=== PATIENT | male | born 1980 | race Caucasian/White ===

== ENCOUNTER 2016-07-13 11:22 | Inpatient (IN) | payer OTHER ==
[2016-07-13 13:55] VITALS: BMI 23.7
--- NOTE | 2016-07-13 15:19 | HP ---
COWS - Scale Resting Pulse: 1= MS 81-100 Sweatin=Flushed/Facial Moisture Restless Observation: 1= Difficult to Sit Still Pupil Size: 0= Normal to Room Light Bone or Joint Aches: 2= Severe Diffuse Aches Runny Nose/ Eye Tearin= Runny Nose/Eyes GI Upset > 30mins: 1= Stomach Cramp Tremor Observation: 2= Slight Tremor Visible Yawning Observation: 2= >3x During Session Anxiety or Irritability: 2=Irritable/Anxious Goose Flesh Skin: 3=Piloerection COWS Score: 18 CIWA Score - CIWA Score Nausea/Vomitin-Mild Nausea/No Vomiting Muscle Tremors: 4-Moderate,w/Arms Extend Anxiety: 4-Mod. Anxious/Guarded Agitation: 4-Moderately Restless Paroxysmal Sweats: 3 Orientation: 0-Oriented Tacttile Disturbances: 0-None Auditory Disturbances: 0-None Visual Disturbances: 0-None Headache: 1-Very Mild CIWA-Ar Total Score: 17 Admission ROS [facility] - HPI Chief Complaint: I want to get clean. Allergies/Adverse Reactions: Allergies Allergy/AdvReac Type Severity Reaction Status Date / Time No Known Allergies Allergy Verified 07/13/16 14:55 History of Present Illness: pt is a 35yr old male with a history of alcohol and heroin dependence seeking detox for treatment. Exam Limitations: No Limitations - Ebola screening Have you traveled outside of the country in the last 21 days: No Have you had contact with anyone from an Ebola affected area: No Have you been sick,other than usual withdrawal symptoms: No Do you have a fever: No - Review of Systems Constitutional: Chills, Diaphoresis, Loss of Appetite, Night Sweats, Unintentional Wgt. Loss EENT: reports: Tearing Respiratory: reports: No Symptoms reported Cardiac: reports: No Symptoms Reported GI: reports: Diarrhea, Nausea, Poor Appetite, Poor Fluid Intake : reports: No Symptoms Reported Musculoskeletal: reports: Back Pain, Joint Pain, Muscle Pain Integumentary: reports: Erythema (to right hand only with rash and redness), Flushing, Sweating Neuro: reports: Headache Endocrine: reports: Excessive Sweating, Flushing, Intolerance to Cold, Intolerance to Heat Hematology: reports: No Symptoms Reported Psychiatric: reports: Judgement Intact, Mood/Affect Appropiate, Orientated x3, Agitated, Anxious Other Systems: Reviewed and Negative Patient History - Patient Medical History Hx Anemia: No Hx Asthma: Yes Hx Chronic Obstructive Pulmonary Disease (COPD): No Hx Cancer: No Hx Cardiac Disorders: No Hx Congestive Heart Failure: No Hx Hypertension: No Hx Hypercholesterolemia: No Hx Pacemaker: No HX Cerebrovascular Accident: No Hx Seizures: No Hx Dementia: No Hx Diabetes: No Hx Gastrointestinal Disorders: No Hx Liver Disease: No Hx Genitourinary Disorders: No Hx Sexually Transmitted Disorders: No Hx Renal Disease (ESRD): No Hx Thyroid Disease: No Hx Human Immunodeficiency Virus (HIV): No (negative) Hx Hepatitis C: No (negative) Hx Depression: No Hx Suicide Attempt: No (denies) Hx Bipolar Disorder: No Hx Schizophrenia: No - Patient Surgical History Past Surgical History: No Hx Neurologic Surgery: No Hx Cataract Extraction: No Hx Cardiac Surgery: No Hx Lung Surgery: No Hx Breast Surgery: No Hx Breast Biopsy: No Hx Abdominal Surgery: No Hx Appendectomy: No Hx Cholecystectomy: No Hx Genitourinary Surgery: No Hx Section: No Hx Orthopedic Surgery: No Anesthesia Reaction: No - PPD History Previous Implant?: Yes Documented Results: Negative w/o proof Implanted On Prior [facility] Admission?: No PPD to be Administered?: Yes - Reproductive History Patient is a Female of Child Bearing Age (11 -55 yrs old): No - Smoking Cessation Smoking history: Current every day smoker Have you smoked in the past 12 months: Yes Aproximately how many cigarettes per day: 5 Hx Chewing Tobacco Use: No Initiated information on smoking cessation: Yes 'Breaking Loose' booklet given: 07/13/16 - Substance & Tx. History Hx Alcohol Use: Yes Hx Substance Use: Yes Substance Use Type: Alcohol, Cocaine, Heroin Hx Substance Use Treatment: Yes - Substances Abused Heroin Route: Injection Frequency: Daily Amount used: 7-8 bags Age of first use: 18 Date of Last Use: 07/12/16 Cocaine Route: Injection Frequency: 3-6 times per week Amount used: $10-20 Age of first use: 33 Date of Last Use: 07/12/16 Alcohol-beer/rum Route: Oral Frequency: Daily Amount used: 1-6 pk./1/2 pt. Age of first use: 33 Date of Last Use: 07/12/16 Family Disease History - Family Disease History Family History: Denies Admission Physical Exam BHS - Vital Signs Vital Signs: Vital Signs - 24 hr 07/13/16 13:53 Temperature 96 F L Pulse Rate 86 Respiratory 20 Rate Blood Pressure 100/62 - Physical General Appearance: Yes: Moderate Distress HEENTM: Yes: Hearing grossly Normal, Nasal Congestion, Rhinorrhea Respiratory: Yes: Lungs Clear, Normal Breath Sounds, No Respiratory Distress Neck: Yes: No masses,lesions,Nodules Breast: Yes: Within Normal Limits Cardiology: Yes: Regular Rhythm, Regular Rate, S1, S2 Abdominal: Yes: Normal Bowel Sounds, Non Tender, Soft Genitourinary: Yes: Within Normal Limits Back: Yes: Normal Inspection Musculoskeletal: Yes: full range of Motion, Back pain Extremities: Yes: Normal Capillary Refill, Normal Inspection, Non-Tender, Tremors Neurological: Yes: Fully Oriented, Alert, Normal Response Integumentary: Yes: Normal Color, Diaphoresis, Rash (to right hand), Track Deng Lymphatic: Yes: Within Normal Limits - Diagnostic (1) Alcohol dependence with uncomplicated withdrawal Current Visit: Yes Status: Chronic (2) Asthma Current Visit: Yes Status: Chronic Qualifiers: Asthma severity: mild intermittent Asthma complication type: uncomplicated Qualified Code(s): J45.20 - Mild intermittent asthma, uncomplicated (3) Cocaine dependence, uncomplicated Current Visit: Yes Status: Chronic (4) Opioid dependence with withdrawal Current Visit: Yes Status: Chronic (5) Rash of hands Current Visit: Yes Status: Acute Comment: palm of right hand Cleared for Admission [facility] - Detox or Rehab [facility] Level of Care: Medically Managed Detox Regimen/Protocol: Methadone/Librium [facility] Breath Alcohol Content Breath Alcohol Content: 0 Urine Drug Screen - Results Drug Screen Negative: No Urine Drug Screen Results: ADITI-Cocaine, OPI-Opiates, MTD-Methadone
[2016-07-13] MEDS ORDERED: MAGNESIUM HYDROX 2400MG/30ML ORAL SUSPENSION 30 ML CUP PO PRN (15:28)
[2016-07-13] MEDS ORDERED: IBUPROFEN 400 MG TABLET (FP) PO PRN (15:28)
[2016-07-13] MEDS ORDERED: diphenhydrAMINE HCL 50 MG CAPSULE PO PRN (15:28)
[2016-07-13] MEDS ORDERED: hydrOXYzine PAMOATE 50 MG CAPSULE (FP) PO PRN (15:28)
[2016-07-13] MEDS ORDERED: guaiFENesin/D-METHORPHAN HB 10 ML UNIT-DOSE CUPS PO PRN (15:28)
[2016-07-13] MEDS ORDERED: MENTHOL/PHENOL 1 EACH UD MM PRN (15:28)
[2016-07-13] MEDS ORDERED: LOPERAMIDE HCL 2 MG CAPSULE PO PRN (15:28)
[2016-07-13] MEDS ORDERED: chlordiazePOXIDE HCL 25 MG CAPSULE PO PRN (15:28)
[2016-07-13] MEDS ORDERED: MAG HYDROX/AL HYDROX/SIMETH 30 ML UNIT-DOSE CUP PO PRN (15:28)
[2016-07-13] MEDS ORDERED: MAGNESIUM CITRATE 300 ML BOTTLE PO PRN (15:28)
[2016-07-13] MEDS ORDERED: P-EPHED 60MG/TRIPROLIDI 2.5MG TABLET PO PRN (15:28)
[2016-07-13] MEDS ORDERED: ACETAMINOPHEN 325 MG TABLET (FP) PO PRN (15:28)
[2016-07-13] MEDS ORDERED: ALBUTEROL SO4 6.7 GM HFA INHALER IH PRN (15:30)
[2016-07-13] MEDS ORDERED: chlordiazePOXIDE HCL 25 MG CAPSULE PO ONE (15:43)
[2016-07-13] MEDS ORDERED: METHADONE HCL 10 MG TABLET (FOR DETOX USE ONLY) PO ONE ×2 (15:43→23:00)
[2016-07-13 16:59] LABS: URINE APPEARANCE CLEAR; URINE BILIRUBIN NEGATIVE (NEGATIVE); URINE BLOOD NEGATIVE (NEGATIVE); URINE COLOR STRAW; URINE GLUCOSE (UA) NEGATIVE (NEGATIVE); URINE KETONE NEGATIVE (NEGATIVE); URINE LEUK ESTERASE NEGATIVE (NEGATIVE); URINE NITRITE NEGATIVE (NEGATIVE); URINE PROTEIN NEGATIVE (NEGATIVE); URINE UROBILINOGEN NEGATIVE E.U./dl (0.2-1.0)
[2016-07-13] MEDS: chlordiazePOXIDE HCL 25 MG CAPSULE PO SCH ×3 (17:19→23:13)
[2016-07-13] MEDS: FLUOCINONIDE 0.05% CREAM (60 GM TUBE) TP SCH ×2 (17:20→22:40)
[2016-07-13] MEDS: THIAMINE HCL 100 MG TABLET (FP) PO SCH (22:40)
[2016-07-14] MEDS: chlordiazePOXIDE HCL 25 MG CAPSULE PO SCH ×4 (06:00→22:35)
[2016-07-14] MEDS ORDERED: METHADONE HCL 10 MG TABLET (FOR DETOX USE ONLY) PO SCH (10:00)
[2016-07-14 10:04] LABS: MCH 28.2 pg (25.7-33.7); MCHC 33.1 g/dl (32.0-35.9); MEAN CELL VOLUME 85.2 fl (80-96); MEAN PLT VOLUME 10.8 fl (7.5-11.1); PLATELET COUNT 289 K/MM3 (134-434); RDW 13.6 % (11.9-15.9); WHITE BLOOD COUNT 10.6 K/mm3 (4.0-10.0)
[2016-07-14 10:44] LABS: ALBUMIN 3.5 g/dl (3.4-5.0); ALK PHOS 86 U/L (45-117); ANION GAP 13 (8-16); BILIRUBIN,TOTAL 0.6 mg/dL (0.2-1.0); CALCIUM 8.4 mg/dL (8.5-10.1); CO2 27 mmol/L (21-32); COCKROFT - GAULT 92.81; CREATININE 1.2 mg/dL (0.7-1.3); GLUCOSE,RANDOM 92 mg/dL (74-106); SGOT/AST 44 U/L (15-37); SGPT/ALT 41 U/L (12-78); TOT PROT 6.5 g/dl (6.4-8.2)
[2016-07-14] MEDS: FLUOCINONIDE 0.05% CREAM (60 GM TUBE) TP SCH ×4 (10:56→22:35)
[2016-07-14] MEDS: PRENATAL VITAMINS W/ FOLIC ACID TABLET (FP) PO SCH (10:56)
--- NOTE | 2016-07-14 11:02 | PN ---
[facility] CIWA - CIWA Score Nausea/Vomitin-No Nausea/No Vomiting Muscle Tremors: 4-Moderate,w/Arms Extend Anxiety: 4-Mod. Anxious/Guarded Agitation: 3 Paroxysmal Sweats: 3 Orientation: 0-Oriented Tacttile Disturbances: 0-None Auditory Disturbances: 0-None Visual Disturbances: 0-None Headache: 0-None Present CIWA-Ar Total Score: 14 S COWS - Scale Resting Pulse: 0= DC 80 or Below Sweatin=Flushed/Facial Moisture Restless Observation: 1= Difficult to Sit Still Pupil Size: 0= Normal to Room Light Bone or Joint Aches: 2= Severe Diffuse Aches Runny Nose/ Eye Tearin= Runny Nose/Eyes GI Upset > 30mins: 2= Nausea/Diarrhea Tremor Observation of Outstretched Hands: 2= Slight Tremor Visible Yawning Observation: 1= 1-2x During Session Anxiety or Irritability: 2=Irritable/Anxious Goose Flesh Skin: 0=Smooth Skin COWS Score: 14 [facility] Progress Note (SOAP) Subjective: Sweating,interrupted sleep,restless Objective: 07/14/16 11:01 Vital Signs - 8 hr 07/14/16 07/14/16 07/14/16 03:26 06:14 10:54 Temperature 97.0 F L 98.2 F Pulse Rate 66 62 Respiratory 18 16 20 Rate Blood Pressure 92/56 106/60 Laboratory Tests 07/13/16 07/14/16 07/14/16 14:00 06:00 06:00 WBC 10.6 H RBC 4.59 Hgb 13.0 Hct 39.1 MCV 85.2 MCHC 33.1 RDW 13.6 Plt Count 289 MPV 10.8 Sodium 138 Potassium 4.3 Chloride 98 Carbon Dioxide 27 Anion Gap 13 BUN 22 H Creatinine 1.2 Creat Clearance w eGFR > 60 Random Glucose 92 Calcium 8.4 L Total Bilirubin 0.6 AST 44 H ALT 41 Alkaline Phosphatase 86 Total Protein 6.5 Albumin 3.5 Urine Color Straw Urine Appearance Clear Urine pH 6.0 Ur Specific [place] 1.018 Urine Protein Negative Urine Glucose (UA) Negative Urine Ketones Negative Urine Blood Negative Urine Nitrite Negative Urine Bilirubin Negative Urine Urobilinogen Negative Ur Leukocyte Esterase Negative labs noted Assessment: 07/14/16 11:01 Withdrawal sx. Plan: Continue detox
[2016-07-14 11:15] LABS: HIV 1 & 2 AB NEGATIVE; HIV 1 AGp24 NEGATIVE
[2016-07-14] MEDS: THIAMINE HCL 100 MG TABLET (FP) PO SCH (22:34)
--- NOTE | 2016-07-14 23:08 | EKG ---
Test Reason : Blood Pressure : / mmHG Vent. Rate : 066 BPM Atrial Rate : 066 BPM P-R Int : 160 ms QRS Dur : 102 ms QT Int : 450 ms P-R-T Axes : 040 060 049 degrees QTc Int : 471 ms NORMAL SINUS RHYTHM VOLTAGE CRITERIA FOR LEFT VENTRICULAR HYPERTROPHY ABNORMAL ECG NO PREVIOUS ECGS AVAILABLE Confirmed by JOSUE DAVE MD ([id number]) on 07/14/2016 11:07:56 PM Referred By: Confirmed By:JOSUE DAVE MD
[2016-07-15] MEDS: chlordiazePOXIDE HCL 25 MG CAPSULE PO SCH ×2 (06:31→10:37)
[2016-07-15] MEDS: METHADONE HCL 5 MG TABLET (FOR DETOX USE ONLY) PO SCH (10:37)
[2016-07-15] MEDS: FLUOCINONIDE 0.05% CREAM (60 GM TUBE) TP SCH ×4 (10:37→22:38)
[2016-07-15] MEDS: PRENATAL VITAMINS W/ FOLIC ACID TABLET (FP) PO SCH (10:37)
--- NOTE | 2016-07-15 15:30 | PN ---
[facility] CIWA - CIWA Score Nausea/Vomitin-No Nausea/No Vomiting Muscle Tremors: 3 Anxiety: 4-Mod. Anxious/Guarded Agitation: 4-Moderately Restless Paroxysmal Sweats: 3 Orientation: 0-Oriented Tacttile Disturbances: 0-None Auditory Disturbances: 0-None Visual Disturbances: 0-None Headache: 0-None Present CIWA-Ar Total Score: 14 [facility] COWS - Scale Resting Pulse: 0= ME 80 or Below Sweatin=Flushed/Facial Moisture Restless Observation: 1= Difficult to Sit Still Pupil Size: 0= Normal to Room Light Bone or Joint Aches: 2= Severe Diffuse Aches Runny Nose/ Eye Tearin= Runny Nose/Eyes GI Upset > 30mins: 2= Nausea/Diarrhea Tremor Observation of Outstretched Hands: 2= Slight Tremor Visible Yawning Observation: 1= 1-2x During Session Anxiety or Irritability: 2=Irritable/Anxious Goose Flesh Skin: 0=Smooth Skin COWS Score: 14 [facility] Progress Note (SOAP) Subjective: Sweating,interrupted sleep,restless,tremors,anxiety. Objective: 07/15/16 15:28 Vital Signs - 8 hr 07/15/16 07/15/16 09:22 13:28 Temperature 96.9 F L 95.8 F L Pulse Rate 59 L 70 Respiratory 18 18 Rate Blood Pressure 102/64 113/58 Laboratory Tests 07/13/16 07/13/16 07/13/16 06:00 14:00 14:00 WBC RBC Hgb Hct MCV MCHC RDW Plt Count MPV Sodium Potassium Chloride Carbon Dioxide Anion Gap BUN Creatinine Creat Clearance w eGFR Random Glucose Calcium Total Bilirubin AST ALT Alkaline Phosphatase Total Protein Albumin Urine Color Straw Urine Appearance Clear Urine pH 6.0 Ur Specific [place] 1.018 Urine Protein Negative Urine Glucose (UA) Negative Urine Ketones Negative Urine Blood Negative Urine Nitrite Negative Urine Bilirubin Negative Urine Urobilinogen Negative Ur Leukocyte Esterase Negative RPR Titer Hepatitis C Antibody <0.1 HIV 1&2 Antibody Screen Negative HIV P24 Antigen Negative 07/14/16 07/14/16 07/14/16 06:00 06:00 06:00 WBC 10.6 H RBC 4.59 Hgb 13.0 Hct 39.1 MCV 85.2 MCHC 33.1 RDW 13.6 Plt Count 289 MPV 10.8 Sodium 138 Potassium 4.3 Chloride 98 Carbon Dioxide 27 Anion Gap 13 BUN 22 H Creatinine 1.2 Creat Clearance w eGFR > 60 Random Glucose 92 Calcium 8.4 L Total Bilirubin 0.6 AST 44 H ALT 41 Alkaline Phosphatase 86 Total Protein 6.5 Albumin 3.5 Urine Color Urine Appearance Urine pH Ur Specific [place] Urine Protein Urine Glucose (UA) Urine Ketones Urine Blood Urine Nitrite Urine Bilirubin Urine Urobilinogen Ur Leukocyte Esterase RPR Titer Nonreactive Hepatitis C Antibody HIV 1&2 Antibody Screen HIV P24 Antigen labs noted Assessment: 07/15/16 15:29 Withdrawal sx. Plan: Continue detox
[2016-07-15] MEDS: chlordiazePOXIDE 5 MG CAPSULE PO SCH ×2 (17:11→22:35)
[2016-07-15] MEDS: THIAMINE HCL 100 MG TABLET (FP) PO SCH (22:35)
[2016-07-16] MEDS: chlordiazePOXIDE 5 MG CAPSULE PO SCH ×2 (06:24→10:38)
[2016-07-16] MEDS: METHADONE HCL 5 MG TABLET (FOR DETOX USE ONLY) PO SCH (10:38)
[2016-07-16] MEDS: PRENATAL VITAMINS W/ FOLIC ACID TABLET (FP) PO SCH (10:39)
[2016-07-16] MEDS: FLUOCINONIDE 0.05% CREAM (60 GM TUBE) TP SCH ×4 (10:39→22:42)
--- NOTE | 2016-07-16 10:46 | PN ---
[facility] Progress Note (SOAP) Subjective: Sweating,interrupted sleep,restless Objective: 07/16/16 10:45 Vital Signs - 8 hr 07/16/16 07/16/16 07/16/16 03:25 06:21 09:29 Temperature 96.3 F L 96.2 F L Pulse Rate 58 L 62 Respiratory 18 16 18 Rate Blood Pressure 96/64 109/68 Laboratory Last Values WBC 10.6 K/mm3 (4.0-10.0) H 07/14/16 06:00 RBC 4.59 M/mm3 (4.00-5.60) 07/14/16 06:00 Hgb 13.0 GM/dL (11.7-16.9) 07/14/16 06:00 Hct 39.1 % (35.4-49) 07/14/16 06:00 MCV 85.2 fl (80-96) 07/14/16 06:00 MCHC 33.1 g/dl (32.0-35.9) 07/14/16 06:00 RDW 13.6 % (11.9-15.9) 07/14/16 06:00 Plt Count 289 K/MM3 (134-434) 07/14/16 06:00 MPV 10.8 fl (7.5-11.1) 07/14/16 06:00 Sodium 138 mmol/L (136-145) 07/14/16 06:00 Potassium 4.3 mmol/L (3.5-5.1) 07/14/16 06:00 Chloride 98 mmol/L (98-107) 07/14/16 06:00 Carbon Dioxide 27 mmol/L (21-32) 07/14/16 06:00 Anion Gap 13 (8-16) 07/14/16 06:00 BUN 22 mg/dL (7-18) H 07/14/16 06:00 Creatinine 1.2 mg/dL (0.7-1.3) 07/14/16 06:00 Creat Clearance w eGFR > 60 (>60) 07/14/16 06:00 Random Glucose 92 mg/dL (74-106) 07/14/16 06:00 Calcium 8.4 mg/dL (8.5-10.1) L 07/14/16 06:00 Total Bilirubin 0.6 mg/dL (0.2-1.0) 07/14/16 06:00 AST 44 U/L (15-37) H 07/14/16 06:00 ALT 41 U/L (12-78) 07/14/16 06:00 Alkaline Phosphatase 86 U/L (45-117) 07/14/16 06:00 Total Protein 6.5 g/dl (6.4-8.2) 07/14/16 06:00 Albumin 3.5 g/dl (3.4-5.0) 07/14/16 06:00 Urine Color Straw 07/13/16 14:00 Urine Appearance Clear 07/13/16 14:00 Urine pH 6.0 (5.0-8.0) 07/13/16 14:00 Ur Specific [place] 1.018 (1.001-1.035) 07/13/16 14:00 Urine Protein Negative (NEGATIVE) 07/13/16 14:00 Urine Glucose (UA) Negative (NEGATIVE) 07/13/16 14:00 Urine Ketones Negative (NEGATIVE) 07/13/16 14:00 Urine Blood Negative (NEGATIVE) 07/13/16 14:00 Urine Nitrite Negative (NEGATIVE) 07/13/16 14:00 Urine Bilirubin Negative (NEGATIVE) 07/13/16 14:00 Urine Urobilinogen Negative E.U./dl (0.2-1.0) 07/13/16 14:00 Ur Leukocyte Esterase Negative (NEGATIVE) 07/13/16 14:00 RPR Titer Nonreactive (NONREACTIVE) 07/14/16 06:00 Hepatitis C Antibody <0.1 s/co ratio (0.0-0.9) 07/13/16 14:00 HIV 1&2 Antibody Screen Negative 07/13/16 06:00 HIV P24 Antigen Negative 07/13/16 06:00 labs noted Assessment: 07/16/16 10:46 Withdrawal sx. Plan: Continue detox Binh chang
[2016-07-16] MEDS: chlordiazePOXIDE HCL 10 MG CAPSULE PO SCH ×2 (17:41→22:31)
[2016-07-16] MEDS ORDERED: ZOLPIDEM TARTRATE 10 MG TABLET (PARK CARE ONLY) PO PRN (22:00)
[2016-07-16] MEDS: THIAMINE HCL 100 MG TABLET (FP) PO SCH (22:31)
[2016-07-17] MEDS: chlordiazePOXIDE HCL 10 MG CAPSULE PO SCH ×2 (07:17→10:42)
[2016-07-17] MEDS ORDERED: METHADONE HCL 10 MG TABLET (FOR DETOX USE ONLY) PO SCH (10:00)
[2016-07-17] MEDS: PRENATAL VITAMINS W/ FOLIC ACID TABLET (FP) PO SCH (10:42)
[2016-07-17] MEDS: FLUOCINONIDE 0.05% CREAM (60 GM TUBE) TP SCH ×4 (10:42→22:53)
--- NOTE | 2016-07-17 12:44 | PN ---
[facility] Progress Note (SOAP) Subjective: ANXIETY,SWEATS,CHILLS,BACKACHE. Objective: 07/17/16 12:44 Vital Signs Temperature 96.0 F L 07/17/16 10:34 Pulse Rate 62 07/17/16 10:34 Respiratory Rate 18 07/17/16 10:34 Blood Pressure 106/65 07/17/16 10:34 O2 Sat by Pulse Oximetry (%) Laboratory Last Values WBC 10.6 K/mm3 (4.0-10.0) H 07/14/16 06:00 RBC 4.59 M/mm3 (4.00-5.60) 07/14/16 06:00 Hgb 13.0 GM/dL (11.7-16.9) 07/14/16 06:00 Hct 39.1 % (35.4-49) 07/14/16 06:00 MCV 85.2 fl (80-96) 07/14/16 06:00 MCHC 33.1 g/dl (32.0-35.9) 07/14/16 06:00 RDW 13.6 % (11.9-15.9) 07/14/16 06:00 Plt Count 289 K/MM3 (134-434) 07/14/16 06:00 MPV 10.8 fl (7.5-11.1) 07/14/16 06:00 Sodium 138 mmol/L (136-145) 07/14/16 06:00 Potassium 4.3 mmol/L (3.5-5.1) 07/14/16 06:00 Chloride 98 mmol/L (98-107) 07/14/16 06:00 Carbon Dioxide 27 mmol/L (21-32) 07/14/16 06:00 Anion Gap 13 (8-16) 07/14/16 06:00 BUN 22 mg/dL (7-18) H 07/14/16 06:00 Creatinine 1.2 mg/dL (0.7-1.3) 07/14/16 06:00 Creat Clearance w eGFR > 60 (>60) 07/14/16 06:00 Random Glucose 92 mg/dL (74-106) 07/14/16 06:00 Calcium 8.4 mg/dL (8.5-10.1) L 07/14/16 06:00 Total Bilirubin 0.6 mg/dL (0.2-1.0) 07/14/16 06:00 AST 44 U/L (15-37) H 07/14/16 06:00 ALT 41 U/L (12-78) 07/14/16 06:00 Alkaline Phosphatase 86 U/L (45-117) 07/14/16 06:00 Total Protein 6.5 g/dl (6.4-8.2) 07/14/16 06:00 Albumin 3.5 g/dl (3.4-5.0) 07/14/16 06:00 Urine Color Straw 07/13/16 14:00 Urine Appearance Clear 07/13/16 14:00 Urine pH 6.0 (5.0-8.0) 07/13/16 14:00 Ur Specific [place] 1.018 (1.001-1.035) 07/13/16 14:00 Urine Protein Negative (NEGATIVE) 07/13/16 14:00 Urine Glucose (UA) Negative (NEGATIVE) 07/13/16 14:00 Urine Ketones Negative (NEGATIVE) 07/13/16 14:00 Urine Blood Negative (NEGATIVE) 07/13/16 14:00 Urine Nitrite Negative (NEGATIVE) 07/13/16 14:00 Urine Bilirubin Negative (NEGATIVE) 07/13/16 14:00 Urine Urobilinogen Negative E.U./dl (0.2-1.0) 07/13/16 14:00 Ur Leukocyte Esterase Negative (NEGATIVE) 07/13/16 14:00 RPR Titer Nonreactive (NONREACTIVE) 07/14/16 06:00 Hepatitis C Antibody <0.1 s/co ratio (0.0-0.9) 07/13/16 14:00 HIV 1&2 Antibody Screen Negative 07/13/16 06:00 HIV P24 Antigen Negative 07/13/16 06:00 Assessment: 07/17/16 12:44 WITHDRAWAL SX Plan: CONTINUE DETOX
[2016-07-17] MEDS: THIAMINE HCL 100 MG TABLET (FP) PO SCH (22:53)
[2016-07-18] MEDS ORDERED: METHADONE HCL 5 MG TABLET (FOR DETOX USE ONLY) PO SCH (06:00)
[2016-07-18 06:46] VITALS: BP 88/57; PULSE 70; TEMP 96.1
--- NOTE | 2016-07-18 16:32 | DS ---
[facility] Detox Discharge Summary Admission Date: 07/13/16 Discharge Date: 07/18/16 - History Present History: Alcohol Dependence, Cocaine Dependence, Opioid Dependence Additional Comments: ADVISED PATIENT TO FOLLOW-UP WITH [facility] REHAB MEDICAL PROVIDER FOR GENERAL MEDICAL ASSESSMENT AND FOR ABNORMAL ADMISSION LAB VALUES. - Physical Exam Results Vital Signs: Vital Signs Temperature 96.1 F L 07/18/16 06:46 Pulse Rate 70 07/18/16 06:46 Respiratory Rate 16 07/18/16 06:46 Blood Pressure 88/57 07/18/16 06:46 O2 Sat by Pulse Oximetry (%) Pertinent Admission Physical Exam Findings: WITHDRAWAL SYMPTOMS. Laboratory Last Values WBC 10.6 K/mm3 (4.0-10.0) H 07/14/16 06:00 RBC 4.59 M/mm3 (4.00-5.60) 07/14/16 06:00 Hgb 13.0 GM/dL (11.7-16.9) 07/14/16 06:00 Hct 39.1 % (35.4-49) 07/14/16 06:00 MCV 85.2 fl (80-96) 07/14/16 06:00 MCHC 33.1 g/dl (32.0-35.9) 07/14/16 06:00 RDW 13.6 % (11.9-15.9) 07/14/16 06:00 Plt Count 289 K/MM3 (134-434) 07/14/16 06:00 MPV 10.8 fl (7.5-11.1) 07/14/16 06:00 Sodium 138 mmol/L (136-145) 07/14/16 06:00 Potassium 4.3 mmol/L (3.5-5.1) 07/14/16 06:00 Chloride 98 mmol/L (98-107) 07/14/16 06:00 Carbon Dioxide 27 mmol/L (21-32) 07/14/16 06:00 Anion Gap 13 (8-16) 07/14/16 06:00 BUN 22 mg/dL (7-18) H 07/14/16 06:00 Creatinine 1.2 mg/dL (0.7-1.3) 07/14/16 06:00 Creat Clearance w eGFR > 60 (>60) 07/14/16 06:00 Random Glucose 92 mg/dL (74-106) 07/14/16 06:00 Calcium 8.4 mg/dL (8.5-10.1) L 07/14/16 06:00 Total Bilirubin 0.6 mg/dL (0.2-1.0) 07/14/16 06:00 AST 44 U/L (15-37) H 07/14/16 06:00 ALT 41 U/L (12-78) 07/14/16 06:00 Alkaline Phosphatase 86 U/L (45-117) 07/14/16 06:00 Total Protein 6.5 g/dl (6.4-8.2) 07/14/16 06:00 Albumin 3.5 g/dl (3.4-5.0) 07/14/16 06:00 Urine Color Straw 07/13/16 14:00 Urine Appearance Clear 07/13/16 14:00 Urine pH 6.0 (5.0-8.0) 07/13/16 14:00 Ur Specific [place] 1.018 (1.001-1.035) 07/13/16 14:00 Urine Protein Negative (NEGATIVE) 07/13/16 14:00 Urine Glucose (UA) Negative (NEGATIVE) 07/13/16 14:00 Urine Ketones Negative (NEGATIVE) 07/13/16 14:00 Urine Blood Negative (NEGATIVE) 07/13/16 14:00 Urine Nitrite Negative (NEGATIVE) 07/13/16 14:00 Urine Bilirubin Negative (NEGATIVE) 07/13/16 14:00 Urine Urobilinogen Negative E.U./dl (0.2-1.0) 07/13/16 14:00 Ur Leukocyte Esterase Negative (NEGATIVE) 07/13/16 14:00 RPR Titer Nonreactive (NONREACTIVE) 07/14/16 06:00 Hepatitis C Antibody <0.1 s/co ratio (0.0-0.9) 07/13/16 14:00 HIV 1&2 Antibody Screen Negative 07/13/16 06:00 HIV P24 Antigen Negative 07/13/16 06:00 LABS NOTED. - Treatment Hospital Course: Detox Protocol Followed, Detoxed Safely, Responded well, Discharged Condition Good Patient has Accepted a Rehab Referral to: NO-PT. TO GO HOME, WILL PURSUE REHAB HIMSELF WITHIN THE NEXT FEW DAYS. - Medication Discharge Medications: Ambulatory Orders Albuterol Sulfate Inhaler - [Ventolin Hfa Inhaler -] 2 inh PO Q4H PRN 07/13/16 - Diagnosis (1) Rash of hands Status: Acute (2) Alcohol dependence with uncomplicated withdrawal Status: Acute (3) Asthma Status: Chronic Qualifiers: Asthma severity: mild intermittent Asthma complication type: uncomplicated Qualified Code(s): J45.20 - Mild intermittent asthma, uncomplicated (4) Cocaine dependence, uncomplicated Status: Acute (5) Opioid dependence with withdrawal Status: Acute - AMA Did Patient Leave Against Medical Advice: No
== END 2016-07-18 09:16 | disposition home or self-care (01) | DRG 773 ==
LOC: YASAS 11:22 → Y3N 15:32
PROVIDERS: ADMIT Internal Medicine; ATTEND Internal Medicine
PROC: HZ2ZZZZ Detoxification Services for Substance Abuse Treatment (ICD-10-PCS; principal; 2016-07-18)
DX: F11.23 Opioid dependence with withdrawal (principal); F10.230 Alcohol dependence with withdrawal, uncomplicated; F14.20 Cocaine dependence, uncomplicated; J45.20 Mild intermittent asthma, uncomplicated; R21 Rash and other nonspecific skin eruption
CPT/HCPCS: 36415; 80053; 81003; 85027; 86593; 87389; 93005; 93010

== ENCOUNTER 2023-03-02 12:12 | Inpatient (IN) | payer OTHER ==
[2023-03-02 12:35] VITALS: BMI 29.9
[2023-03-02] MEDS ORDERED: BENZOCAINE/MENTHOL (CHLORASEPTIC ) LOZENGE MM PRN (14:04)
[2023-03-02] MEDS ORDERED: BISMUTH SUBSALICYLATE 262 MG/15 ML BTL PO PRN (14:04)
[2023-03-02] MEDS ORDERED: IBUPROFEN 600 MG TABLET (FP) PO PRN (14:04)
[2023-03-02] MEDS ORDERED: POLYETHYLENE GLYCOL (HEALTHYLAX) 3350 17 GM PACKET PO PRN (14:04)
[2023-03-02] MEDS ORDERED: ACETAMINOPHEN 325 MG TABLET (FP) PO PRN (14:04)
[2023-03-02] MEDS ORDERED: IBUPROFEN 400 MG TABLET (FP) PO PRN (14:04)
[2023-03-02] MEDS ORDERED: NALOXONE HCL (KLOXXADO) 8 MG SPRAY NS PRN (14:04)
[2023-03-02] MEDS ORDERED: DICYCLOMINE HCL 10 MG CAPSULE PO PRN (14:04)
[2023-03-02] MEDS ORDERED: BUPRENORPHINE HCL 150 MCG, BUPRENORPHINE HCL 75 MCG BC PRN (14:04)
[2023-03-02] MEDS ORDERED: guaiFENesin 600 MG TABLET.ER (FP) PO PRN (14:04)
[2023-03-02] MEDS ORDERED: NALOXONE HCL 0.4 MG/ML VIAL IM PRN (14:04)
[2023-03-02] MEDS ORDERED: diazePAM 5 MG TABLET PO PRN (14:04)
[2023-03-02] MEDS ORDERED: MAG HYDROX/AL HYDROX/SIMETH 30 ML UNIT-DOSE CUP PO PRN (14:04)
[2023-03-02] MEDS ORDERED: BENZONATATE 200 MG CAPSULE PO PRN (14:04)
[2023-03-02] MEDS ORDERED: MAGNESIUM HYDROX 2400MG/30ML ORAL SUSPENSION 30 ML CUP PO PRN (14:04)
[2023-03-02] MEDS: NICOTINE 7 MG/24 HOURS TOPICAL PATCH TD SCH (15:10)
[2023-03-02] MEDS: BUPRENORPHINE HCL 150 MCG, BUPRENORPHINE HCL 75 MCG BC ONE (15:10)
[2023-03-02] MEDS: cloNIDine HCL 0.1 MG TABLET PO ONE (15:10)
[2023-03-02] MEDS ORDERED: BUPRENORPHINE HCL 75 MCG FILM BC ONE (15:23)
[2023-03-02] MEDS ORDERED: BUPRENORPHINE HCL 150 MCG FILM BC ONE (15:23)
[2023-03-02] MEDS ORDERED: cloNIDine HCL 0.1 MG TABLET ONE (15:24)
[2023-03-02] MEDS: PRENATAL VITAMINS W/ FOLIC ACID TABLET (FP) PO SCH (15:29)
[2023-03-02] MEDS: diazePAM 5 MG TABLET PO SCH (17:45)
[2023-03-02] MEDS: MELATONIN 5 MG TABLETS PO SCH (22:09)
[2023-03-02] MEDS: THIAMINE HCL 100 MG TABLET (FP) PO SCH (22:09)
[2023-03-02] MEDS: METHOCARBAMOL 500 MG TABLET PO PRN (22:10)
[2023-03-03] MEDS: BUPRENORPHINE HCL 150 MCG, BUPRENORPHINE HCL 75 MCG BC SCH (05:33)
[2023-03-03 06:15] VITALS: RESP 17
[2023-03-03] MEDS: hydrOXYzine PAMOATE 25 MG CAPSULE (FP) PO PRN (08:39)
[2023-03-03] MEDS: LOPERAMIDE HCL 2 MG CAPSULE PO PRN (08:39)
[2023-03-03] MEDS: BUPRENORPHINE HCL 150 MCG, BUPRENORPHINE HCL 75 MCG BC PRN (10:14)
[2023-03-03] MEDS: cloNIDine HCL 0.1 MG TABLET PO PRN (10:56)
[2023-03-03] MEDS: ONDANSETRON *ODT* 4 MG TABLET SL PRN (10:57)
[2023-03-03 11:16] VITALS: BP 125/82; PULSE 80; TEMP 98
[2023-03-03] MEDS ORDERED: cloNIDine HCL 0.1 MG TABLET PO PRN (12:15)
[2023-03-03 13:23] LABS: HEMATOCRIT 44.5 % (35.4-49); HEMOGLOBIN 14.8 GM/dL (11.7-16.9); MCH 26.6 pg (25.7-33.7); MCHC 33.4 g/dl (32.0-35.9); MEAN CELL VOLUME 79.8 fl (80-96); MEAN PLT VOLUME 10.4 fl (7.5-11.1); PLATELET COUNT 270 10^3/uL (134-434); RBC 5.57 M/mm3 (4.00-5.60); RDW 15.6 % (11.9-15.9); WHITE BLOOD COUNT 8.2 K/mm3 (4.0-10.0)
[2023-03-03 13:49] LABS: CHLORIDE 106 mmol/L (98-107); POTASSIUM 3.8 mmol/L (3.5-5.1); SODIUM 138 mmol/L (136-145)
[2023-03-03 13:56] LABS: ALBUMIN 3.7 g/dl (3.4-5.0); CALCIUM 9.4 mg/dL (8.5-10.1)
[2023-03-03 13:57] LABS: ANION GAP 4 mmol/L (4-13); CO2 27 mmol/L (21-32); GLUCOSE,RANDOM 97 mg/dL (74-106); TOT PROT 7.8 g/dl (6.4-8.2)
[2023-03-03 13:59] LABS: CREATININE 0.9 mg/dL (0.55-1.3)
[2023-03-03 14:00] LABS: SGOT/AST 25 U/L (15-37); SGPT/ALT 46 U/L (13-61)
[2023-03-03 14:01] LABS: BILIRUBIN,TOTAL 0.7 mg/dL (0.2-1)
[2023-03-03 14:02] LABS: ALK PHOS 110 U/L (45-117)
[2023-03-03 14:17] LABS: BLOOD UREA NITROGEN 12.5 mg/dL (7-18)
[2023-03-04] MEDS ORDERED: BUPRENORPHINE HCL 450 MCG FILM BC SCH (06:00)
[2023-03-04] MEDS ORDERED: diazePAM 5 MG TABLET PO SCH (06:00)
[2023-03-04] MEDS ORDERED: methaDONE HCL 10 MG TABLET (FOR DETOX USE ONLY) PO ONE (10:00)
[2023-03-05] MEDS ORDERED: BUPRENORPHINE/NALOXONE 4 MG/1 MG FILM PACKET SL SCH (06:00)
[2023-03-05] MEDS ORDERED: diazePAM 5 MG TABLET PO SCH (06:00)
[2023-03-06] MEDS ORDERED: BUPRENORPHINE/NALOXONE 8 MG/2 MG FILM PACKET SL ONE (06:00)
[2023-03-06] MEDS ORDERED: diazePAM 5 MG TABLET PO ONE (06:00)
[2023-03-06] MEDS ORDERED: methaDONE HCL 10 MG TABLET (FOR DETOX USE ONLY) PO ONE (10:00)
== END 2023-03-03 12:24 | disposition left against medical advice (07) | DRG 773 ==
LOC: YASAS 12:12 → Y3N 15:34
PROVIDERS: ADMIT Allergy & Immunology; ATTEND Surgery
PROC: HZ2ZZZZ Detoxification Services for Substance Abuse Treatment (ICD-10-PCS; principal; 2023-03-02)
DX: F11.23 Opioid dependence with withdrawal (principal); F10.230 Alcohol dependence with withdrawal, uncomplicated; F13.20 Sedative, hypnotic or anxiolytic dependence, uncomplicated; F14.20 Cocaine dependence, uncomplicated; F17.210 Nicotine dependence, cigarettes, uncomplicated; J45.909 Unspecified asthma, uncomplicated; L30.9 Dermatitis, unspecified
CPT/HCPCS: 36415; 80053; 80307; 85027; 86780; 87635; 93005; 93010; Q0162